=== PATIENT | female | born 1995 | race Caucasian/White ===

== ENCOUNTER 2017-01-10 14:06 | Emergency (ER) | payer MEDICAID ==
[~2017-01-10] VITALS: Ht 157.5 cm; Wt 49.9 kg
[2017-01-10 14:19] VITALS: BP_SYST 111
--- NOTE | 2017-01-10 14:26 | NUR ---
Pt brought by , A&Ox4, pt c/o dizziness, N/V and headache since this am, ambulatory, respirations even and unlabored, cap refill <3,VS WNL.
--- NOTE | 2017-01-10 14:26 | NUR ---
Patient to ER bed 06 to gown for evaluation. Side rails up. Report given to Roque
--- NOTE | 2017-01-10 14:28 | NUR ---
Dr Cisse at bedside examining patient
--- NOTE | 2017-01-10 14:30 | NUR ---
Pt presents to ED c/o CRISTOBAL x 2 days w/nausea and vomiting.Pt denies other significant med hx. Lights dimmmed in room to reduce stimuli.
[2017-01-10 15:22] LABS: BASOPHILS % (AUTO) 0.6 % (0.0-2.0); EOSINOPHILS # (AUTO) 0.1 K/uL (0.0-0.4); EOSINOPHILS % (AUTO) 0.9 % (0.0-4.0); HEMATOCRIT 42.6 % (36-48); HEMOGLOBIN 14.2 g/dL (12.0-16.0); LYMPHOCYTES # (AUTO) 2.3 K/uL (1.0-5.5); LYMPHOCYTES % (AUTO) 29.8 % (20.5-51.5); MEAN CORPUSCULAR HEMOGLOBIN 32 pg (27-31); MEAN CORPUSCULAR HGB CONC 33 % (32-36); MEAN CORPUSCULAR VOLUME 95 fL (79.0-98.0); MONOCYTES # (AUTO) 0.6 K/uL (0.0-1.0); MONOCYTES % (AUTO) 7.6 % (1.7-9.3); NEUTROPHILS # (AUTO) 4.6 K/uL (1.8-7.7); NEUTROPHILS % (AUTO) 61.1 % (40.0-70.0); PLATELET COUNT (AUTO) 192 K/uL (130-430); RED BLOOD CELL COUNT(AUTO) 4.47 MIL/uL (4.2-6.2); RED CELL DISTRIBUTION WIDTH 11.8 % (9.0-15.0); WHITE BLOOD COUNT (AUTO) 7.6 K/uL (4.8-10.8)
[2017-01-10 15:29] LABS: BILIRUBIN,URINE NEGATIVE (NEGATIVE); BLOOD, URINE 1+ (NEGATIVE); CLARITY/URINE CLOUDY (CLEAR); COLOR,URINE YELLOW (YELLOW); GLUCOSE,URINE NEGATIVE (NEGATIVE); KETONES,URINE NEGATIVE (NEGATIVE); LEUKOCYTE ESTERASE ,URINE TRACE (NEGATIVE); NITRITE, URINE NEGATIVE (NEGATIVE); PH,URINE 7.5 (5.0-8.0); PROTEIN URINE NEGATIVE (NEGATIVE); UROBILINOGEN,URINE 0.2 (0.2-1.0)
[2017-01-10 15:30] LABS: CALCIUM 8.8 mg/dL (8.4-11.0); CREATININE 0.7 mg/dL (0.55-1.30); POTASSIUM 4.1 mmol/L (3.5-5.1)
[2017-01-10 15:34] LABS: ALBUMIN 3.9 g/dL (3.4-4.8); TOTAL BILIRUBIN 0.6 mg/dL (0.0-1.0)
--- NOTE | 2017-01-10 15:37 | NUR ---
Patient resting quietly in nad, lights dimmed for patient comfort. Ice pack applied to veinipuncture site. Will continue to observe and assess
[2017-01-10 15:38] LABS: BACTERIA,URINE MODERATE /HPF (None Seen); MUCUS,URINE None Seen /LPF (None Seen); RBC,URINE 0-3 /HPF (0-3)
[2017-01-10 16:22] VITALS: BP_SYST 112
--- NOTE | 2017-01-10 16:24 | NUR ---
Patient given written and verbal discharge instructions and verbalizes understanding. ER MD discussed with patient the results and treatment provided. Patient in stable condition. ID arm band removed. Rx of Zofran and Antivert given. Patient educated on pain management and to follow up with PMD. Pain Scale 0/10 . Opportunity for questions provided and answered.
== END 2017-01-10 16:24 | disposition home or self-care (01) ==
LOC: SED 14:06
DX: R42 Dizziness and giddiness (principal); R11.2 Nausea with vomiting, unspecified
CPT/HCPCS: 36415; 80053; 81000-TC; 81025; 85025; 87086; 93005; 99285

== ENCOUNTER 2017-01-16 16:42 | Emergency (ER) | payer MEDICAID ==
[~2017-01-16] VITALS: Ht 157.5 cm; Wt 49.9 kg
[2017-01-16 16:52] VITALS: BP_SYST 108
== END 2017-01-16 17:45 | disposition home or self-care (01) ==
LOC: SED 16:42
DX: M79.81 Nontraumatic hematoma of soft tissue (principal)
CPT/HCPCS: 99282